=== PATIENT | male | born 1930 | race Hispanic/Latino ===

== ENCOUNTER 2018-10-22 15:12 | Emergency (ER) | payer MEDICARE ==
--- NOTE | 2018-10-22 17:07 | Emergency Department Report ---
ED General Adult HPI - General Chief complaint: Weakness Stated complaint: EVALUATION Time Seen by Provider: 10/22/18 16:21 Source: EMS Mode of arrival: Stretcher Limitations: Physical Limitation - History of Present Illness Initial comments: The patient presents to the emergency department from [place] for evaluation of delirium. The patient has been everything was since the of this month for depression. The patient arrived to [place] from [facility]. Patient states he feels fine and the family states that the patient has been weak for the last 3-4 weeks. Patient denies any chest pain, shortness breath, or abdominal pain. The patient was started on Zoloft until approximately 2 weeks and it was abruptly stopped and was put on Prozac. Patient denies any homicidal suicidal ideation -: Gradual Severity scale (0 -10): 0 Improves with: none Worsens with: none Associated Symptoms: denies other symptoms Treatments Prior to Arrival: none - Related Data Allergies Allergy/AdvReac Type Severity Reaction Status Date / Time No Known Allergies Allergy Unverified 10/22/18 15:49 ED Review of Systems ROS: Stated complaint: EVALUATION Other details as noted in HPI Comment: All other systems reviewed and negative Constitutional: denies: chills, fever Eyes: denies: eye pain, eye discharge, vision change ENT: denies: ear pain, throat pain Respiratory: denies: cough, shortness of breath, wheezing Cardiovascular: denies: chest pain, palpitations Endocrine: no symptoms reported Gastrointestinal: denies: abdominal pain, nausea, diarrhea Genitourinary: denies: urgency, dysuria Musculoskeletal: denies: back pain, joint swelling, arthralgia Skin: denies: rash, lesions Neurological: denies: headache, weakness, paresthesias Psychiatric: denies: anxiety, depression Hematological/Lymphatic: denies: easy bleeding, easy bruising ED Past Medical Hx - Past Medical History Previous Medical History?: Yes Hx Hypertension: Yes Hx Diabetes: Yes (Type 2) Hx Psychiatric Treatment: (Hx of Depression, anxiety) Additional medical history: Hx of Benign prostatic hypertrophy, Glaucoma, UTI dx and treated as of 10/12/18 - Surgical History Past Surgical History?: Yes Hx Cholecystectomy: Yes Additional Surgical History: Bilateral shoulders - Social History Smoking Status: Former Smoker ED Physical Exam - General Limitations: Physical Limitation General appearance: alert, in no apparent distress - Head Head exam: Present: atraumatic, normocephalic - Eye Eye exam: Present: normal appearance, PERRL, EOMI - ENT ENT exam: Present: mucous membranes moist - Neck Neck exam: Present: normal inspection - Respiratory Respiratory exam: Present: normal lung sounds bilaterally. Absent: respiratory distress, wheezes, rales, rhonchi - Cardiovascular Cardiovascular Exam: Present: regular rate, normal rhythm. Absent: systolic murmur, diastolic murmur, rubs, gallop - GI/Abdominal GI/Abdominal exam: Present: soft, normal bowel sounds. Absent: distended, tenderness - Rectal Rectal exam: Present: deferred - Extremities Exam Extremities exam: Present: normal inspection - Back Exam Back exam: Present: normal inspection - Neurological Exam Neurological exam: Present: alert, oriented X3, CN II-XII intact. Absent: motor sensory deficit - Psychiatric Psychiatric exam: Present: normal affect, normal mood - Skin Skin exam: Present: warm, dry, intact, normal color. Absent: rash ED Course Vital Signs 10/22/18 10/22/18 10/22/18 15:36 16:12 19:31 Temperature 97.5 F L Pulse Rate 71 75 78 Respiratory 16 18 Rate Blood Pressure Blood Pressure 131/65 124/78 [Right] O2 Sat by Pulse 96 96 Oximetry 10/22/18 10/22/18 10/22/18 19:57 20:07 20:43 Temperature Pulse Rate 77 74 Respiratory 15 16 14 Rate Blood Pressure 129/62 Blood Pressure [Right] O2 Sat by Pulse 97 96 95 Oximetry 10/22/18 10/22/18 20:45 21:01 Temperature Pulse Rate 70 71 Respiratory 15 14 Rate Blood Pressure 138/93 Blood Pressure [Right] O2 Sat by Pulse 95 97 Oximetry ED Medical Decision Making - Lab Data Result diagrams: 10/22/18 16:53 10/22/18 16:53 Lab Results 10/22/18 10/22/18 10/22/18 Range/Units 16:53 16:53 16:53 WBC 5.8 (4.5-11.0) K/mm3 RBC 4.34 (3.65-5.03) M/mm3 Hgb 14.1 (11.8-15.2) gm/dl Hct 41.6 (35.5-45.6) % MCV 96 H (84-94) fl MCH 33 H (28-32) pg MCHC 34 (32-34) % RDW 14.4 (13.2-15.2) % Plt Count 199 (140-440) K/mm3 Lymph % (Auto) 23.1 (13.4-35.0) % [place] % (Auto) 10.2 H (0.0-7.3) % Eos % (Auto) 1.7 (0.0-4.3) % Baso % (Auto) 0.4 (0.0-1.8) % Lymph # 1.3 (1.2-5.4) K/mm3 Murray # 0.6 (0.0-0.8) K/mm3 Eos # 0.1 (0.0-0.4) K/mm3 Baso # 0.0 (0.0-0.1) K/mm3 Seg Neutrophils % 64.6 (40.0-70.0) % Seg Neutrophils # 3.8 (1.8-7.7) K/mm3 Sodium 139 (137-145) mmol/L Potassium 3.8 (3.6-5.0) mmol/L Chloride 99.9 (98-107) mmol/L Carbon Dioxide 31 H (22-30) mmol/L Anion Gap 12 mmol/L BUN 32 H (9-20) mg/dL Creatinine 1.2 (0.8-1.5) mg/dL Estimated GFR 57 ml/min BUN/Creatinine Ratio 27 % Glucose 136 H (75-100) mg/dL Calcium 10.3 H (8.4-10.2) mg/dL Total Bilirubin 0.90 (0.1-1.2) mg/dL AST 38 (5-40) units/L ALT 71 H (7-56) units/L Alkaline Phosphatase 64 (35-129) units/L Troponin T < 0.010 (0.00-0.029) ng/mL Total Protein 6.8 (6.3-8.2) g/dL Albumin 3.8 L (3.9-5) g/dL Albumin/Globulin Ratio 1.3 % Urine Color (Yellow) Urine Turbidity (Clear) Urine pH (5.0-7.0) Ur Specific [place] (1.003-1.030) Urine Protein (Negative) mg/dL Urine Glucose (UA) (Negative) mg/dL Urine Ketones (Negative) mg/dL Urine Blood (Negative) Urine Nitrite (Negative) Urine Bilirubin (Negative) Urine Urobilinogen (<2.0) mg/dL Ur Leukocyte Esterase (Negative) Urine WBC (Auto) (0.0-6.0) /HPF Urine RBC (Auto) (0.0-6.0) /HPF Hyaline Casts /LPF Urine Mucus /HPF 10/22/18 Range/Units 20:06 WBC (4.5-11.0) K/mm3 RBC (3.65-5.03) M/mm3 Hgb (11.8-15.2) gm/dl Hct (35.5-45.6) % MCV (84-94) fl MCH (28-32) pg MCHC (32-34) % RDW (13.2-15.2) % Plt Count (140-440) K/mm3 Lymph % (Auto) (13.4-35.0) % [place] % (Auto) (0.0-7.3) % Eos % (Auto) (0.0-4.3) % Baso % (Auto) (0.0-1.8) % Lymph # (1.2-5.4) K/mm3 [place] # (0.0-0.8) K/mm3 Eos # (0.0-0.4) K/mm3 Baso # (0.0-0.1) K/mm3 Seg Neutrophils % (40.0-70.0) % Seg Neutrophils # (1.8-7.7) K/mm3 Sodium (137-145) mmol/L Potassium (3.6-5.0) mmol/L Chloride (98-107) mmol/L Carbon Dioxide (22-30) mmol/L Anion Gap mmol/L BUN (9-20) mg/dL Creatinine (0.8-1.5) mg/dL Estimated GFR ml/min BUN/Creatinine Ratio % Glucose (75-100) mg/dL Calcium (8.4-10.2) mg/dL Total Bilirubin (0.1-1.2) mg/dL AST (5-40) units/L ALT (7-56) units/L Alkaline Phosphatase (35-129) units/L Troponin T (0.00-0.029) ng/mL Total Protein (6.3-8.2) g/dL Albumin (3.9-5) g/dL Albumin/Globulin Ratio % Urine Color Yellow (Yellow) Urine Turbidity Clear (Clear) Urine pH 5.0 (5.0-7.0) Ur Specific [place] 1.020 (1.003-1.030) Urine Protein <15 mg/dl (Negative) mg/dL Urine Glucose (UA) 50 (Negative) mg/dL Urine Ketones Neg (Negative) mg/dL Urine Blood Neg (Negative) Urine Nitrite Neg (Negative) Urine Bilirubin Neg (Negative) Urine Urobilinogen < 2.0 (<2.0) mg/dL Ur Leukocyte Esterase Neg (Negative) Urine WBC (Auto) 1.0 (0.0-6.0) /HPF Urine RBC (Auto) 2.0 (0.0-6.0) /HPF Hyaline Casts 3 /LPF Urine Mucus Few /HPF - EKG Data -: EKG Interpreted by Pr EKG shows normal: sinus rhythm Rate: normal - Radiology Data Radiology results: [place] [address] XRay Report Signed Patient: CARMEN KAY MR#: [id number] : 1930 Acct:[id number] Age/Sex: 88 / M ADM Date: 10/22/18 Loc: ED Attending Dr: Ordering Physician: DIANA AYALA MD Date of Service: 10/22/18 Procedure(s): XR chest 1V ap Accession Number(s): [id number] cc: DIANA AYALA MD Fluoro Time In Minutes: FINAL REPORT EXAM: XR CHEST 1V AP HISTORY: weakness TECHNIQUE: Frontal chest x-ray performed portable upright Comparison: None FINDINGS: Extremely low volume exam. Heart size upper limits normal. Crowding at both lung bases with crowding of the interstitium and hilar contours. Prominent right hilar contour. Aorta is atheromatous. Prominence of the superior mediastinum. Bilateral shoulder arthroplasties. IMPRESSION: Extremely low volume exam. Prominence of the right hilum. Congestion of the interstitium. Recommend larger inspiratory volume two view chest follow-up to further assess these findings to exclude underlying pathology. Bilateral shoulder arthroplasties. Transcribed By: MP Dictated By: QUENTIN GILL Electronically Authenticated By: QUENTIN GILL Signed Date/Time: 10/22/18 1740 DD/ 38 TD/TT: 10/22/181738 - Medical Decision Making Discussed performing a CT of the patient's head but the daughter states the patient has had 2 within the last 2 weeks and politely declines Discussed results with the patient and his daughter Labs reviewed There is thought that the weakness the patient is exhibiting could be caused by the abrupt change in psych medications Critical care attestation.: If time is entered above; I have spent that time in minutes in the direct care of this critically ill patient, excluding procedure time. ED Disposition Clinical Impression: Weakness Disposition: DC-01 TO HOME OR SELFCARE Is pt being admited?: No Does the pt Need Aspirin: No Condition: Stable Instructions: Weakness (ED), Fatigue (ED) Additional Instructions: Return if worse Symptoms could be caused by medication changes Referrals: YARA MEYER MD [Primary Care Provider] - 3-5 Days Time of Disposition: 21:23
[2018-10-22 17:27] LABS: Basophils % (Auto) 0.4 % (0.0-1.8); Eosinophils # (Auto) 0.1 K/mm3 (0.0-0.4); Eosinophils % (Auto) 1.7 % (0.0-4.3); Hematocrit 41.6 % (35.5-45.6); Hemoglobin 14.1 gm/dl (11.8-15.2); Lymphocytes # (Auto) 1.3 K/mm3 (1.2-5.4); Lymphocytes % (Auto) 23.1 % (13.4-35.0); Mean Corpuscular HGB Conc 34 % (32-34); Mean Corpuscular Volume 96 fl (84-94); Monocytes # (Auto) 0.6 K/mm3 (0.0-0.8); Monocytes % (Auto) 10.2 % (0.0-7.3); Platelet Count 199 K/mm3 (140-440); Red Blood Count 4.34 M/mm3 (3.65-5.03); Red Cell Distribution Width 14.4 % (13.2-15.2)
--- NOTE | 2018-10-22 17:40 | XRay Report ---
FINAL REPORT EXAM: XR CHEST 1V AP HISTORY: weakness TECHNIQUE: Frontal chest x-ray performed portable upright Comparison: None FINDINGS: Extremely low volume exam. Heart size upper limits normal. Crowding at both lung bases with crowding of the interstitium and hilar contours. Prominent right hil ar contour. Aorta is atheromatous. Prominence of the superior mediastinum. Bilateral shoulder arthroplasties. IMPRESSION: Extremely low volume exam. Prominence of the right hilum. Congestion of the interstitium. Recommend larger inspiratory volume tw o view chest follow-up to further assess these findings to exclude underlying pathology. Bilateral shoulder arthroplasties.
[2018-10-22 17:41] LABS: Albumin 3.8 g/dL (3.9-5); Calcium 10.3 mg/dL (8.4-10.2)
[2018-10-22 20:59] LABS: Bilirubin,Urine NEG (Negative); Blood,Urine NEG (Negative); Color,Urine Yellow (Yellow); Hyaline Casts,Urine 3 /LPF; Mucus,Urine FEW /HPF; Protein,Urine <15 mg/dL mg/dL (Negative); Urobilinogen,Urine < 2.0 mg/dL (<2.0)
--- NOTE | 2018-10-22 21:24 | XRay Report ---
FINAL REPORT PROCEDURE: XR CHEST ROUTINE 2V TECHNIQUE: PA and lateral chest radiographs were obtained. CPT 22610 HISTORY: weakness COMPARISON: 10/22/2018 1705 hours FINDINGS: Heart: Normal. Mediastinum/Vessels: Normal. Lungs/Pleural space: Normal. Bony thorax: No acute osseous abnormality. Other: IMPRESSION: Normal examination.
[2018-10-22 22:16] VITALS: BP 140/80
== END 2018-10-22 22:30 | disposition home or self-care (01) ==
LOC: ED 15:12
DX: R53.1 Weakness (principal)
CPT/HCPCS: 36415; 71045; 71046; 80053; 81001; 84484; 85025; 93005; 93010